=== PATIENT | male | born 1990 | race Caucasian/White ===

== ENCOUNTER 2016-06-16 21:39 | Emergency (ER) | payer OTHER ==
[~2016-06-16] VITALS: Ht 185.4 cm; Wt 86.2 kg
[~2016-06-16 21:39] MED LIST: AUGMENTIN 875 M1 TAB PO; AUGMENTIN 875-1 EACH PO; BACTRIM DS 8001 TAB PO; BLM PO; FLONASE ALLERG9.9 ML NAS; HYDROCODONE/ACE1 TA1 PO; IBUPROFEN800 M1 PO; LUVOX PO; MEDROL4 M2 PO; MOTRIN 400MG (400 MG PO; NORCO 325 MG-51 TAB PO; PERCOCET 325 MG1 TA2 PO; PERCOCET 5-3251 EACH PO; POLYTRIM O200 GTT/BO OPH; PREDNISOLO15 MG/5 M4 PO; PRILOSEC OTC20 M1 PO; VICODIN 300 MG-1 TAB PO
--- NOTE | 2016-06-16 22:19 | ED INFLUENZA/URI COMPLAINT ---
History of Present Illness General Chief Complaint: Upper Respiratory Sx/Fever Stated Complaint: URI SYMPTOMS Source: patient Exam Limitations: no limitations Vital Signs & Intake/Output Vital Signs & Intake/Output Vital Signs Date Time Temp Pulse Resp B/P Pulse O2 O2 Flow FiO2 Ox Delivery Rate 06/16 2245 99.6 90 18 136/80 97 Room Air Room Air 06/16 2148 99.7 115 20 155/81 96 Room Air ED Intake and Output 06/17 0000 06/16 1200 Intake Total Output Total Balance Patient 190 lb Weight Allergies Coded Allergies: NO KNOWN ALLERGIES (06/16/16) Reconcile Medications Azithromycin 250 MG TABLET 1 DP PO AD sinusitis 2 the first day followed by 1 for days 2-5 Triage Note: TRIAGE: PT TO ER C/C "EVERYONE IN MY HOUSE IS SICK. CONGESTION, DROWSINESS A LITTLE DIZZINESS. I THINK IT'S LIKE FLU OR COLD OR SOMETHING." PT AFEBRILE AT TRIAGE. Triage Nurses Notes Reviewed? yes HPI: This patient is a 26-year-old male who presented to the emergency department today for evaluation of upper respiratory tract symptoms. The patient reported that his symptoms began yesterday and consist of tactile fevers, nasal congestion, "and just like I could have a cold for something." The patient reported that, "everyone in my house is sick right now." He reported that his father has a cold and was put on a Z-Clay. The patient reported that it is difficult for him to sleep. He denied any ear pain, sore throat, chest pain, difficulty breathing, abdominal pain, nausea, cough, or vomiting. (MERCEDES HERNANDEZ PA-C) Past History Travel History Traveled to [place] past 21 day No Medical History Any Pertinent Medical History? 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 No (MERCEDES HERNANDEZ PA-C) Review of Systems Review of Systems Constitutional: Reports: see HPI. EENTM: Reports: see HPI. Respiratory: Reports: no symptoms. Cardiovascular: Reports: no symptoms. GI: Reports: no symptoms. Genitourinary: Reports: no symptoms. Musculoskeletal: Reports: no symptoms. Skin: Reports: no symptoms. Neurological/Psychological: Reports: no symptoms. All Other Systems: Reviewed and Negative (MERCEDES HERNANDEZ PA-C) Physical Exam Physical Exam Ears, Nose, Throat: moist mucous membrane, hearing grossly normal, POSITIVE NASAL CONGESTION. nO NASAL DRAINAGE.NO MUFFLED OR HOARSE VOICE Comments: Well-developed well-nourished person in no acute distress Neck: Supple, no lymphadenopathy. Nontender Back: Normal gait Cardiovascular: Regular rate and rhythm with no murmurs, rubs, or gallops Respiratory: No respiratory distress. Breath sounds clear to auscultation bilaterally with no wheezes, rales, or rhonchi Extremity: Normal and equal pulses Neuro: Alert oriented x3, cranial nerves II through XII grossly intact. Skin: No appreciable rash on exposed skin, skin is warm and dry. Psych: Mood and affect is normal Core Measures Severe Sepsis Present: No Septic Shock Present: No (MERCEDES HERNANDEZ PA-C) Progress Differential Diagnosis: influenza, meningitis, neutropenia, otitis, pneumonia, pharyngitis, sinusitis Plan of Care: Orders Procedure Date/time Status RAPID VIRAL INFLUENZA A 06/16 2206 Complete THROAT CULTURE W/QUICK STREP 06/16 2206 Active Initial ED EKG: none (MERCEDES HERNANDEZ PA-C) Departure Departure Disposition: HOME OR SELF CARE Condition: Stable Clinical Impression Primary Impression: Sinusitis Qualifiers: Sinusitis location: unspecified location Chronicity: unspecified Qualified Code: J32.9 - Chronic sinusitis, unspecified Referrals: GABRIEL PARIS MD (PCP/Family) Additional Instructions: Take antibiotic as directed. Be sure to stay hydrated and get rest. Follow-up with your primary care physician. Return for any worsening symptoms or concerns. Departure Forms: Customer Survey General Discharge Information Prescriptions: Current Visit Scripts Azithromycin 1 DP PO AD #6 TAB 2 the first day followed by 1 for days 2-5 (MERCEDES HERNANDEZ PA-C) PA/RATE CLERK Co-Sign Statement Statement: ED Attending supervision documentation- [] I saw and evaluated the patient. I have also reviewed all the pertinent lab results and diagnostic results. I agree with the findings and the plan of care as documented in the PA's/RATE CLERK's documentation. [x] I have reviewed the ED Record and agree with the PA's/RATE CLERK's documentation. [] Additions or exceptions (if any) to the PAs/RATE CLERK's note and plan are summarized below: [] (GUZMAN VILLANUEVA,SHANNAN Palmer)
[2016-06-16] MEDS ORDERED: AZITHROMYCIN250 M1 PO (22:32)
[2016-06-16 22:45] VITALS: BP 136/80
== END 2016-06-16 22:47 ==
LOC: ERH 21:39
DX: J32.9 Chronic sinusitis, unspecified (principal)
CPT/HCPCS: 87804; 87804-59

== ENCOUNTER 2016-06-23 15:32 | Emergency (ER) | payer OTHER ==
[~2016-06-23] VITALS: Ht 185.4 cm; Wt 86.2 kg
[~2016-06-23 15:32] MED LIST changes: +AZITHROMYCIN250 M1 PO
[2016-06-23 15:40] VITALS: BP 142/81
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
[2016-06-23] MEDS ORDERED: PERCOCET 5-3251 EACH PO (16:35)
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
== END 2016-06-23 17:44 ==
LOC: ERH 15:32
DX: S62.001A Unspecified fracture of navicular [scaphoid] bone of right wrist, initial encounter for closed fracture (principal); V89.2XXA Person injured in unspecified motor-vehicle accident, traffic, initial encounter
CPT/HCPCS: 73110-RT

== ENCOUNTER 2016-10-14 20:42 | Emergency (ER) | payer OTHER ==
[~2016-10-14] VITALS: Ht 185.4 cm; Wt 83.9 kg
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
[2016-10-14 22:14] LABS: ABSOLUTE BASOPHIL COUNT 0 /CUMM (0.0-0.2); ABSOLUTE EOSINOPHIL COUNT 0.1 /CUMM (0.0-0.7); ABSOLUTE GRANULOCYTE CT 3.5 /CUMM (1.4-6.5); ABSOLUTE LYMPH COUNT 2.8 /CUMM (1.2-3.4); ABSOLUTE MONOCYTE COUNT 0.5 /CUMM (0.10-0.60); BASOPHIL % 0.5 % (0.0-2.0); EOSINOPHIL % 2.1 % (0-5); GRANULOCYTE % 50.7 % (42.2-75.2); HEMATOCRIT 46.4 % (42-52); MEAN CORPUSCULAR HGB CONC 34.9 G/DL (33.0-37.0); MEAN CORPUSCULAR VOLUME 88.6 FL (80.0-94.0); MEAN PLATELET VOLUME 7.6 FL (7.4-10.4); PLATELET COUNT 262 /CUMM (130-400); RBC DISTRIBUTION WIDTH 11.9 % (11.5-14.5); RED BLOOD CELL CT 5.24 /CUMM (4.70-6.10); WHITE BLOOD CELL COUNT 6.9 /CUMM (4.8-10.8)
[2016-10-14] MEDS ORDERED: PERCOCET 5-3251 EACH PO ×2 (22:40→23:48)
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
--- NOTE | 2016-10-14 23:39 | ULTRASOUND REPORT ---
EXAMINATION: ULTRASOUND SCROTUM CLINICAL INFORMATION: Right-sided testicular pain. Intermittent for one week. Increasing pain today. COMPARISON: None. TECHNIQUE: Routine scrotal ultrasound with grayscale and spectral and color Doppler. FINDINGS: Testicle: There is homogeneous echotexture of the right and left testicle. No focal lesion. Doppler demonstrates arterial and venous vascular flow in both testicles. Right testicle: 4.5 x 2.2 x 3.1 cm. Volume 21.8 mL Left testicle: 4.2 x 2.5 x 2.7 cm. Volume 20.1 mL Epididymis: There is normal vascular flow with Doppler.. No abnormal mass. Small cysts in the head of the right epididymis measuring 4 mm. 2 mm cyst in the head of the left epididymis. Varices: There is no varices. Hydrocele: There is no hydrocele. Scrotal wall: Unremarkable. IMPRESSION: Normal ultrasound of the scrotum.
[2016-10-14] MEDS ORDERED: FLOMAX0.4 M1 PO (23:48)
[2016-10-15 00:01] VITALS: BP 122/74
== END 2016-10-15 00:02 ==
LOC: ERH 20:42
PROVIDERS: Physician Assistant
DX: R31.9 Hematuria, unspecified (principal); N50.811 Right testicular pain
CPT/HCPCS: 74176; 81001

== ENCOUNTER 2016-10-22 02:03 | Emergency (ER) | payer OTHER ==
[~2016-10-22] VITALS: Ht 185.4 cm; Wt 83.9 kg
[~2016-10-22 02:03] MED LIST changes: +FLOMAX0.4 M1 PO
[2016-10-22 02:19] VITALS: BP 144/81
--- NOTE | 2016-10-22 02:48 | ED GI/GU/ABDOMINAL COMPLAINT ---
History of Present Illness General Chief Complaint: General Adult Stated Complaint: " PER PT NEED PAIN MEDS FOR KIDNEY STONES" Source: patient, old records, friend Exam Limitations: no limitations Vital Signs & Intake/Output Vital Signs & Intake/Output Vital Signs Date Time Temp Pulse Resp B/P B/P Pulse O2 O2 Flow FiO2 Mean Ox Delivery Rate 10/22 0219 97.1 80 18 144/81 97 Room Air Allergies Coded Allergies: NO KNOWN ALLERGIES (06/16/16) Reconcile Medications Azithromycin 250 MG TABLET 1 DP PO AD sinusitis 2 the first day followed by 1 for days 2-5 Ibuprofen 800 MG TABLET 1 TAB PO Q6PRN PRN pain Oxycodone HCl/Acetaminophen (Percocet 5-325 MG Tablet) 5 MG-325 MG TABLET 1-2 TAB PO Q6P PRN PAIN Oxycodone HCl/Acetaminophen (Percocet 5-325 MG Tablet) 5 MG-325 MG TABLET 1-2 TAB PO Q6P PRN pain Oxycodone HCl/Acetaminophen (Percocet 5-325 MG Tablet) 5 MG-325 MG TABLET 1-2 TAB PO 4 TIMES/DAY PRN severe pain Oxycodone HCl/Acetaminophen (Percocet 5-325 MG Tablet) 5 MG-325 MG TABLET 1 TAB PO Q6HR PRN PAIN Tamsulosin HCl (Flomax) 0.4 MG CAP.ER.24H 1 CAP PO DAILY kidney stone Triage Note: TRIAGE: PATIENT TO ER FROM HOME REPORTING +KIDNEY STONES X 3 WEEKS, CT SCAN LAST TUESDAY. PATIENT SAW UROLOGIST ON TUESDAY THIS WEEK, WAS ASKED "IF GOING TO SURGERY TUESDAY OR WAIT 1 WEEK TO SEE IF IT PASSES." PATIENT REPORTS NOW OUT OF HIS PAIN MEDICATION. WAS TAKING PERCOCET 5-325 AND FLOMAX. ALSO TAKING TRAMADOL W/O RELIEF. Triage Nurses Notes Reviewed? yes Onset: 3 weeks Duration: week(s):, constant, continues in ED Timing: recent history Quality/Severity: aching, moderate, sharpness, severe Location: right flank Radiation: scrotal Activities at Onset: none Prior Abdominal Problems: similar symptoms Past Sexual History: Unobtainable at this time Modifying Factors: Improves With: other (pain medicine). Associated Symptoms: abdominal pain, nausea/vomiting HPI: 3 weeks prior to admission patient complains of intermittent right flank pain moderate to severe social with nausea waxing and waning radiating to his scrotum. 1 week prior to admission was diagnosed with right kidney stone epididymal cyst. He reports no allergies to laser the stone has not passed in 1 week. Denies fever chills nausea vomiting diarrhea vomiting diarrhea chest pain cough shortness breath headache dysuria rash bleeding. Past History Travel History Traveled to [place] past 21 day No Medical History Any Pertinent Medical History? 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 No Review of Systems Review of Systems Constitutional: Reports: no symptoms. EENTM: Reports: no symptoms. Respiratory: Reports: no symptoms. Cardiovascular: Reports: no symptoms. GI: Reports: no symptoms. Genitourinary: Reports: see HPI, pain. Musculoskeletal: Reports: no symptoms. Skin: Reports: no symptoms. Neurological/Psychological: Reports: no symptoms. Hematologic/Endocrine: Reports: no symptoms. Immunologic/Allergic: Reports: no symptoms. All Other Systems: Reviewed and Negative Physical Exam Physical Exam General Appearance: well developed/nourished, alert, awake, anxious, mild distress Head: atraumatic, normal appearance Eyes: Bilateral: normal appearance, PERRL, EOMI, normal inspection. Ears, Nose, Throat, Mouth: hearing grossly normal, moist mucous membrane Neck: normal inspection, supple, full range of motion, normal alignment Respiratory: normal breath sounds, chest non-tender, no respiratory distress, quiet respiration, lungs clear Cardiovascular: regular rate/rhythm, normal peripheral pulses, norml femoral pulses equa Peripheral Pulses: 4+ carotid (R), 4+ carotid (L) Gastrointestinal: normal bowel sounds, soft, non-tender, no organomegaly Male Genitals: normal genitalia Back: normal inspection, normal range of motion Extremities: normal range of motion, no ligament instability Neurologic/Psych: no motor/sensory deficits, awake, alert, oriented x 3, normal gait, normal mood/affect Skin: intact, normal color Core Measures ACS in differential dx? No Severe Sepsis Present: No Septic Shock Present: No Progress Differential Diagnosis: ureterolithiasis Plan of Care: Analgesia Initial ED EKG: none Departure Departure Time of Disposition: 248 Disposition: HOME OR SELF CARE Condition: Stable Clinical Impression Primary Impression: Renal colic on right side Referrals: HERON VILLANUEVA,GORGE PARIS MD,GABRIEL (PCP/Family) Departure Forms: Customer Survey General Discharge Information Prescriptions: Current Visit Scripts Oxycodone HCl/Acetaminophen (Percocet 5-325 MG Tablet) 1-2 TAB PO 4 TIMES/DAY PRN severe pain #20 TAB Ibuprofen 1 TAB PO Q6PRN PRN pain #50 TAB
[2016-10-22] MEDS ORDERED: IBUPROFEN800 M1 PO (02:51)
[2016-10-22] MEDS ORDERED: PERCOCET 5-3251 EACH PO (02:51)
== END 2016-10-22 03:01 ==
LOC: ERH 02:03
DX: N23 Unspecified renal colic (principal)

== ENCOUNTER 2016-10-29 03:28 | Observation (INO) | payer OTHER ==
[~2016-10-29] VITALS: Ht 185.4 cm; Wt 83.9 kg
--- NOTE | 2016-10-29 14:24 | Operative Report ---
Operative/Inv Procedure Report Surgery Date: 10/29/16 Name of Procedure: right ureteroscopy with laser lithotripsy and stone fragment removal; left ureteroscopy with retrograde pyelogram and stent placement Pre-Operative Diagnosis: right distal 3mm ureteral stone and left 3mm renal stone Post-Operative Diagnosis: same Estimated Blood Loss: scant Surgeon/Tube Worker: GORGE SHELBY MD Anesthesia: local monitored anesthesi Drains: 6x28cm stent in left ureter Specimens: stone fragments Complications: none; unable to get into left renal collecting system small extravasation in left renal system, UPJ area Condition: stable Operative Indication: right ureteral stone with renal colic Operative/Procedure Note Note: This an operative dictation on patient Kalen Seay. Patient was consented for right ureteroscopy with laser lithotripsy and stone removal with possible stent and left ureteroscopy with possible stone extraction and stent placement and retrograde pyelogram. He was given the risks benefits and alternatives of the surgery and he wished to proceed. All questions were answered. Patient was taken to the operating room placed on the operating table in the supine position. Once IV antibiotics were given and timeout was performed he was given LMA anesthesia. He was placed in the dorsolithotomy position and prepped and draped in the standard sterile fashion. A cystoscope was placed into the bladder and the bladder was globally inspected. There were no abnormalities and the ureteral orifices were in anatomic location. The right ureteral orifice was attempted to be cannulated with a solo guidewire but it was unable to be done. A semirigid ureteroscope was then placed up the ureter carefully and the stone was seen in the distal ureter. It was spiculated and yellow and black in color. This was lasered with a 200 laser fiber into smaller fragments. The 0 tip basket was then used to remove the fragments and passed off the field. The left ureter was then cannulated with a solo guidewire. The dual-lumen catheter was then used to attempt to place a second wire with a superstiff. However this was difficult to do as the dual-lumen catheter was not able to traverse the UO. However the superstiff was able to be passed up. The ureteral access sheath 45 cm was then used to gently dilate up the ureteral orifice. This was able to be done successfully with some care. Once the flexible digital ureteroscope was then placed up into the ureter through the ureteral access sheath at the point of the UPJ junction there was narrowing and the scope was not able to be passed. Given the small size of the stone and the patient's asymptomatic nature with that stone further dilation was not opted for with the balloon dilator. A retrograde pyelogram was performed and no obvious the stone defect was seen. There was a small extravasation at the UPJ junction. The ureteroscope with the ureteral access sheath was removed carefully under direct visualization. The remaining Solo wire was then used to place a 6 x 28 cm ureteral stent with the cystoscope. It was seen to be in good position and the wire was removed. Fluoroscopically and cystoscopically the stent was in good position. The patient tolerated the procedure well. Findings: right distal ureteral stone. Left narrowed ureteral orifice and tight UPJ area. Unable to enter the renal pelvis with the ureteroscope on the left side so this was aborted. Discharge Disposition: PACU
[2016-10-29 20:03] VITALS: BP 140/74
--- NOTE | 2016-10-29 21:59 | RADIOLOGY REPORT ---
EXAMINATION: ABDOMEN 1 VIEW CLINICAL INFORMATION: Pain. Stent placement. COMPARISON: 10/14/2016. TECHNIQUE: A supine view of the abdomen is provided. FINDINGS: There are no dilated loops of small bowel. There are no air-fluid levels. A left double-J ureteral stent is in place. The proximal aspect overlies the renal pelvis. The distal aspect terminates within the urinary bladder. The visualized lung bases are clear. The osseous structures are unremarkable. IMPRESSION: Left double-J ureteral stent in place. Unremarkable bowel gas pattern.
--- NOTE | 2016-10-29 23:41 | RADIOLOGY REPORT ---
EXAMINATION: INTRAOPERATIVE FLUOROSCOPIC GUIDANCE AND ABDOMEN CLINICAL INFORMATION: Bilateral ureteroscopy. Right lithotripsy. Left stent placement. COMPARISON: Abdominal and pelvic CT from 10/14/2016. TECHNIQUE: Fluoroscopic time was utilized in the OR for Dr. Maharaj. Fluoroscopic images were obtained in the AP projection. FINDINGS: Fluoroscopic guidance was provided during left ureteroscopy. Contrast fills the left collecting system and proximal left ureter. There is mild dilation to the proximal left ureter. The calyces are not dilated. FLUOROSCOPY TIME: 25 seconds of fluoroscopic time was utilized for the entirety of this examination. IMPRESSION: Fluoroscopic guidance was provided during left ureteroscopy. Contrast fills the left collecting system and proximal left ureter. There is mild dilation to the proximal left ureter. The calyces are not dilated.
[2016-10-30 06:28] VITALS: BP 134/76
[2016-10-30 08:20] LABS: ABSOLUTE BASOPHIL COUNT 0 /CUMM (0.0-0.2); ABSOLUTE EOSINOPHIL COUNT 0 /CUMM (0.0-0.7); ABSOLUTE GRANULOCYTE CT 7.3 /CUMM (1.4-6.5); ABSOLUTE LYMPH COUNT 2.2 /CUMM (1.2-3.4); ABSOLUTE MONOCYTE COUNT 0.7 /CUMM (0.10-0.60); BASOPHIL % 0.3 % (0.0-2.0); EOSINOPHIL % 0.1 % (0-5); GRANULOCYTE % 71.3 % (42.2-75.2); HEMATOCRIT 44.5 % (42-52); MEAN CORPUSCULAR HGB 30.2 PG (27.0-31.0); MEAN CORPUSCULAR HGB CONC 33.9 G/DL (33.0-37.0); MEAN CORPUSCULAR VOLUME 89.1 FL (80.0-94.0); MEAN PLATELET VOLUME 8.6 FL (7.4-10.4); PLATELET COUNT 247 /CUMM (130-400); RBC DISTRIBUTION WIDTH 11.6 % (11.5-14.5); WHITE BLOOD CELL COUNT 10.3 /CUMM (4.8-10.8)
--- NOTE | 2016-10-30 10:59 | Cons- Urology ---
General Information and HPI Consulting Request Date of Consult: 10/15/16 Requested By: MD MARIA EUGENIA ANESTHESIA Reason for Consult: SEVERE LEFT COLIC INTOLERANCE TO STENT Source of Information: patient Exam Limitations: no limitations History of Present Illness: 26 YEAR OLD POST BILAT URETEROSCOPY FOR STONES WITH LEFT STENT PLACED. PT WITH N/V AND UNABLE TO CONTROL SEVERE 10/10 PAIN FROM LEFT STENT WITH PO PERCOCET AND IV DILAUDID. THE PT WAS SENT BACK TO PER ANESTHESIA PROTOCOL FOR EVALUATION. ATTEMPTS TO CONTACT DR. SHELBY REPORTEDLY UNSUCCESSFUL AND CONTACTED ME ON URGENT REQUEST. The pt WAS IN EXCRUTIATING PAIN FOR 10-15MIN POST VOID REQUIRING IV DILAUDID. HE WILL BE ADMITTED FOR PAIN MANAGEMENT, POSSIBLE STENT REMOVAL IN AM. Allergies/Medications Allergies: Coded Allergies: NO KNOWN ALLERGIES (06/16/16) Home Med List: Ciprofloxacin HCl (Cipro) 500 MG TABLET 1 TAB PO BID INFECTION Oxycodone HCl/Acetaminophen (Percocet 5-325 MG Tablet) 5 MG-325 MG TABLET 1-2 TAB PO Q6P PRN PAIN Phenazopyridine HCl 100 MG TABLET 100 MG PO PC PRN ABDOMINAL PAIN FOR DYSURIA TID PRN Tamsulosin HCl (Flomax) 0.4 MG CAP.ER.24H 1 CAP PO DAILY kidney stone Current Medications: Current Medications Sig/Jen Start time Last Medication Dose Route Stop Time Status Admin Cefazolin Sodium 2,000 MG ONCE 10/29 0000 DC IV 10/29 2359 Dextrose/Water 1,000 ML .Q20H 10/29 1900 AC 10/29 IV 2002 Docusate Sodium 100 MG BID 10/29 2200 AC 10/30 PO 1031 Fentanyl Citrate 200 MCG .STK-MED ONE 10/29 1255 DC IM 10/29 1256 Hydromorphone HCl 2 MG .STK-MED ONE 10/29 1823 DC IM 10/29 1824 Hydromorphone HCl 2 MG .STK-MED ONE 10/29 1451 DC IM 10/29 1452 Midazolam HCl 4 MG .STK-MED ONE 10/29 1255 DC IM 10/29 1256 Oxycodone/ 2 TAB Q4P PRN 10/29 1900 AC 10/30 Acetaminophen PO 0724 Oxycodone/ 0 .STK-MED ONE 10/29 1630 DC Acetaminophen PO Phenazopyridine HCl 100 MG PC 10/30 0900 AC 10/30 PO 1030 Tamsulosin HCl 0.4 MG BID 10/29 220 AC 10/29 PO 2219 Past History Medical History Neurological: NONE EENT: otitis media, sinusitis Cardiovascular: NONE Respiratory: NONE Gastrointestinal: NONE Hepatic: NONE Renal: nephrolithiasis Musculoskeletal: PINKY FINGER FX Psychiatric: NONE Endocrine: NONE Blood Disorders: NONE Cancer(s): 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 Home Who Do You Live With? parent Services at Home: None Primary Language: Beninese Smoking Status: Current Everyday Smoker ETOH Use: occasional use Illicit Drug Use: denies illicit drug use Living Will? no Functional Ability ADLs Independent: dressing, eating, toileting, bathing. Ambulation: independent IADLs Independent: shopping, housework, finances, food prep, telephone, transportation , medication admin. Employment History Employment: Employed ([employer]) Retired? no Review of Systems Review of Systems Constitutional: Denies: no symptoms. EENTM: Denies: no symptoms. Cardiovascular: Denies: no symptoms. Respiratory: Denies: no symptoms. Genitourinary: Reports: dysuria, frequency, hematuria. Musculoskeletal: Denies: no symptoms. Skin: Denies: no symptoms. Exam & Diagnostic Data Vital Signs and I&O Vital Signs Date Time Temp Pulse Resp B/P B/P Pulse O2 O2 Flow FiO2 Mean Ox Delivery Rate 10/31 627 97.5 63 20 134/76 98 10/299 61 140/74 10/29 2002 98.1 61 18 140/74 97 Room Air Intake & Output 10/30 1600 10/30 0800 10/30 0000 10/29 1600 10/29 0800 10/29 0000 Intake Total 400 440 Output Total 275 Balance 400 165 Intake, IV 400 200 Intake, Oral 240 Output, Urine 275 Patient 185 lb Weight Physical Exam General Appearance: well developed/nourished, severe distress Head: atraumatic Eyes: Bilateral: normal appearance. Respiratory: normal breath sounds Cardiovascular: regular rate/rhythm Gastrointestinal: distention Back: CVA tenderness (L) Extremities: normal inspection Skin: intact Reproductive: Normal male genitalia Last 24 Hours of Labs: Laboratory Tests 10/30 0600 Chemistry Sodium (137 - 145 mmol/L) 136 L Potassium (3.5 - 5.1 mmol/L) 4.3 Chloride (98 - 107 mmol/L) 101 Carbon Dioxide (22 - 30 mmol/L) 26 Anion Gap (5 - 16) 10 BUN (9 - 20 mg/dL) 14 Creatinine (0.7 - 1.2 mg/dL) 1.0 Estimated GFR (>60 ml/min) > 60 BUN/Creatinine Ratio (7 - 25 %) 14.0 Hematology CBC w Diff NO MAN DIFF REQ WBC (4.8 - 10.8 /CUMM) 10.3 RBC (4.70 - 6.10 /CUMM) 5.00 Hgb (14.0 - 18.0 G/DL) 15.1 Hct (42 - 52 %) 44.5 MCV (80.0 - 94.0 FL) 89.1 MCH (27.0 - 31.0 PG) 30.2 RDW (11.5 - 14.5 %) 11.6 Plt Count (130 - 400 /CUMM) 247 MPV (7.4 - 10.4 FL) 8.6 Gran % (42.2 - 75.2 %) 71.3 Lymphocytes % (20.5 - 51.1 %) 21.6 Monocytes % (1.7 - 9.3 %) 6.7 Eosinophils % (0 - 5 %) 0.1 Basophils % (0.0 - 2.0 %) 0.3 Absolute Granulocytes (1.4 - 6.5 /CUMM) 7.3 H Absolute Lymphocytes (1.2 - 3.4 /CUMM) 2.2 Absolute Monocytes (0.10 - 0.60 /CUMM) 0.7 H Absolute Eosinophils (0.0 - 0.7 /CUMM) 0 Absolute Basophils (0.0 - 0.2 /CUMM) 0 PUBS MCHC (33.0 - 37.0 G/DL) 33.9 Imaging Results: PATIENT: KASSANDRA FLEMING PRESENT AGE: 26 PATIENT ACCOUNT NO: [id number] : 89 LOCATION: [facility] ORDERING PHYSICIAN: ANTON COFFMAN SERVICE DATE: 10/14/16 EXAM TYPE: CAT - CT ABD & PELVIS W/O IV CONTRAS EXAMINATION: CT ABDOMEN AND PELVIS WITHOUT CONTRAST CLINICAL INFORMATION: Flank pain and hematuria. Scrotal pain. COMPARISON: None. TECHNIQUE: Multidetector volumetric imaging was performed from the superior aspect of the liver through the pubic symphysis. Sagittal and coronal reformatted images were obtained on the technologist's workstation. DLP: 306 mGy-cm FINDINGS: Limited evaluation of the solid abdominal viscera in the absence of intravenous contrast. LUNG BASES: The visualized lung bases are unremarkable. LIVER, GALLBLADDER, AND BILIARY TREE: The liver is normal in size, shape, and attenuation. No contour deforming hepatic lesion or biliary ductal dilatation is present. The gallbladder is unremarkable with no evidence of radiopaque gallstones, gallbladder wall thickening, or obvious pericholecystic inflammatory changes. PANCREAS: Unremarkable. SPLEEN: Unremarkable. ADRENAL GLANDS: Unremarkable. KIDNEYS AND URETERS: Nephrolithiasis of the left kidney, with a 3 mm nonobstructing stone identified within the midpole of the left kidney. No appreciable nephrolithiasis of the right kidney. Of note, there is a 3 mm stone within the distal right ureter, adjacent to the S1 vertebral body. There is no upstream obstruction of the right kidney. No left-sided ureteral stones are identified and there is no hydronephrosis of either kidney. BLADDER: Decompressed but otherwise unremarkable. GASTROINTESTINAL TRACT: Normal anatomic orientation of the stomach relative to the duodenum. Normal caliber of abdominal and pelvic bowel loops, without evidence of obstruction or ileus. No circumferential bowel wall thickening with surrounding inflammatory changes to suggest an underlying infectious or inflammatory enterocolitis. Nonvisualization of the appendix. No acute inflammatory changes within the right lower quadrant of the abdomen. No organizing intra-abdominal fluid collections or free intraperitoneal air. ABDOMINAL WALL: No significant hernia is appreciated. LYMPH NODES: No significant abdominal or pelvic adenopathy. VASCULAR: Normal course and caliber of the abdominal aorta and its branching vessels, without aneurysmal dilatation. Limited evaluation for vascular patency in the absence of intravenous contrast. PELVIC VISCERA: Unremarkable. OSSEOUS STRUCTURES: No acute osseous abnormality. Normal alignment of the thoracolumbar spine. IMPRESSION: A 3 mm stone within the distal right ureter without associated upstream hydroureteronephrosis of the right kidney or right renal collecting system. Nephrolithiasis of the left kidney with a 3 mm nonobstructing stone identified within the midpole of the left kidney. Assessment/Plan Assessment/Plan LEFT STENT INTOLERANCE: ATE SOLID FOOD IN SDS-WILL NEED OVERNIGHT NPO WITH IV NARC FOR PAIN CONTROL-LIKELY STENT DC IN AM Copies To: AVRIL VELAZCO MD Consult Acknowledgment - Thank you for your consult request. Attending MD Review Statement Attending Statement Attending MD Statement: examined this patient, discussed with family, discussed w/nursing Attending Assessment/Plan: LEFT STENT INTOLERANCE: 23 HR HOLD FOR STENT DC IN AM.
[2016-10-30 11:13] VITALS: BP 132/68
--- NOTE | 2016-10-30 11:20 | NUR ---
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 TICLET TO RIDE COMPLETE, CHART/OR CHECKLIST AND STAMPER SENT WITH PT. AWAIT RETURN TO FLOOR.
[2016-10-30] MEDS ORDERED: PHENAZOPYRIDIN100 M3 PO (12:03)
[2016-10-30] MEDS ORDERED: CIPRO500 M1 PO (12:03)
--- NOTE | 2016-10-30 12:31 | Operative Report ---
Operative/Inv Procedure Report Surgery Date: 10/30/16 Name of Procedure: cystoscopy: left stent removal Pre-Operative Diagnosis: stent intolerance Post-Operative Diagnosis: same Estimated Blood Loss: scant Surgeon/Psychologist: AVRIL VELAZCO MD Anesthesia: moderate sedation Drains: none Specimens: left stent-intact Complications: none Condition: pain free in RR Operative/Procedure Note Note: The patient was taken to the operating room placed OR table in supine position. Timeout was performed, with the patient awake, in order to confirm anesthesia, and other pertinent perioperative information. After adequate anesthesia, the patient was then placed lithotomy stirrups, draped and prepped in the usual surgical fashion. A 22 Somali cystoscope sheath with 30 angle lens was inserted into the urethra, subsequently into the bladder without difficulty. Upon thorough and systematic surveillance, the bladder was noted to be free of tumor free of stone. Both ureteral orifices were in their orthotopic position with clear eflux from the right, and a stent protruding from the left. The left stent was grasped with an alligator forcep, and the cystoscope along with entire stent was removed without difficulty. 2% Urojet was instilled into urethra and clamped for 5 minutes. The patient tolerated the procedure well was then taken to the recovery room in satisfactory condition. He is to be discharged home with antibiotics pain medications and the follow-up appointment with Dr. Maharaj in the outpatient setting. Discharge Disposition: PACU CC: AVRIL VELAZCO MD
[2016-10-30 13:30] VITALS: BP 126/78
--- NOTE | 2016-10-30 13:38 | NUR ---
NURSING NOTE: PT BACK TO FLOOR VIA STRETCHER FROM OR, AMBULATED TO BATHROOM, VOIDED ORANGE COLORED URINE, DENIES COMPLAINTS, REG DIET ORDER, VITALS OBAINED, PT TO BE DCD WHEN TOLERATES PO. CONT TO MONITOR.
[2016-10-30] MEDS ORDERED: TAMSULOSIN HCL0.4 M1 PO (16:27)
[2016-10-30] MEDS ORDERED: OXYCODONE-ACET1 EACH PO (16:35)
[2016-10-30] MEDS ORDERED: VALIUM5 M2 PO (18:29)
== END 2016-10-30 15:24 ==
LOC: STS 03:28 → PACUH 18:33 → 2NB 18:33 → ENRESERV 19:07 → 2NB 19:53 → ENPENDDIS 10-30 12:38 → 2NB 10-30 15:24
PROVIDERS: ADMIT Urology
DX: N20.2 Calculus of kidney with calculus of ureter (principal); F17.200 Nicotine dependence, unspecified, uncomplicated; T83.84XA Pain due to genitourinary prosthetic devices, implants and grafts, initial encounter; Y73.3 Surgical instruments, materials and gastroenterology and urology devices (including sutures) associated with adverse incidents
CPT/HCPCS: 36415; 74000; 82355; 82436; C2617; J0131; J0690; J7060

== ENCOUNTER 2016-10-30 16:07 | Emergency (ER) | payer OTHER ==
[~2016-10-30] VITALS: Ht 185.4 cm; Wt 83.9 kg
[~2016-10-30 16:07] MED LIST changes: +CIPRO500 M1 PO; +PHENAZOPYRIDIN100 M3 PO
--- NOTE | 2016-10-30 16:20 | ED GI/GU/ABDOMINAL COMPLAINT ---
History of Present Illness General Chief Complaint: Abdominal Pain/Flank Pain Stated Complaint: L KIDNEY PAIN, STENT REMOVAL TODAY Source: patient, family Exam Limitations: no limitations Vital Signs & Intake/Output Vital Signs & Intake/Output Vital Signs Date Time Temp Pulse Resp B/P B/P Pulse O2 O2 Flow FiO2 Mean Ox Delivery Rate 10/30 1830 96.8 62 17 135/89 98 Room Air 10/30 1626 98.2 75 16 146/76 99 Room Air Allergies Coded Allergies: NO KNOWN ALLERGIES (06/16/16) Reconcile Medications Ciprofloxacin HCl (Cipro) 500 MG TABLET 1 TAB PO BID INFECTION Diazepam (Valium) 5 MG TABLET 1 TAB PO TID BACK PAIN Oxycodone HCl/Acetaminophen (Oxycodone-Acetaminophen 5-325) 5 MG-325 MG TABLET 1 TAB PO AD PAIN (Reported) Phenazopyridine HCl 100 MG TABLET 100 MG PO PC PRN ABDOMINAL PAIN FOR DYSURIA TID PRN Tamsulosin HCl 0.4 MG CAP.ER.24H 1 CAP PO DAILY (Reported) Triage Nurses Notes Reviewed? yes HPI: 26-year-old male arrived to triage to [facility] complaining of severe left and right flank pain, left more than right starting 45 minutes ago. He was just discharged from this hospital 45 minutes ago after having a urethral stent removed left kidney. He had a bilateral ureteral scoping for stones with left stent placed October 29. He was having nausea and vomiting and unable to control pain with Percocet and IV Dilaudid. He went for stent removal this morning because it was felt he could not tolerate it due to the excruciating pain he was having. He was discharged home with antibiotics and Percocet for pain. He is returned because the pain returned 1010 achy cramping which is causing him to feel slight nausea and diaphoresis. I spoke to Dr. Little and we will administer IV morphine for pain control but no further imaging is needed. (MARY GARCIA APRN) Past History Travel History Traveled to [place] past 21 day No Medical History Any Pertinent Medical History? see below for history Neurological: NONE EENT: otitis media, sinusitis Cardiovascular: NONE Respiratory: NONE Gastrointestinal: NONE Hepatic: NONE Renal: nephrolithiasis Musculoskeletal: PINKY FINGER FX Psychiatric: NONE Endocrine: NONE Blood Disorders: NONE Cancer(s): NONE ATHLETIC SCOUT/Reproductive: NONE History of MRSA: No History of VRE: No History of CDIFF: No Surgical History Surgical History: appendectomy, LITHOTRIPSY WITH STENT REMOVAL Psychosocial History Services at Home None What is your primary language Swiss Family History Hx Contributory? No (MARY GARCIA APRN) Review of Systems Review of Systems Constitutional: Reports: diaphoresis. EENTM: Reports: no symptoms. Respiratory: Reports: no symptoms. Cardiovascular: Reports: no symptoms. GI: Reports: no symptoms. Genitourinary: Reports: no symptoms. Musculoskeletal: Reports: see HPI, back pain. Skin: Reports: no symptoms. Neurological/Psychological: Reports: no symptoms. Hematologic/Endocrine: Reports: no symptoms. Immunologic/Allergic: Reports: no symptoms. All Other Systems: Reviewed and Negative (MARY GARCIA APRN) Physical Exam Physical Exam General Appearance: alert, awake, severe distress Head: atraumatic, normal appearance Eyes: Bilateral: normal appearance, PERRL, EOMI. Ears, Nose, Throat, Mouth: hearing grossly normal Neck: normal inspection Respiratory: normal breath sounds, chest non-tender, no respiratory distress Cardiovascular: regular rate/rhythm Gastrointestinal: normal bowel sounds, soft, non-tender Back: CVA tenderness (R), CVA tenderness (L) Extremities: normal range of motion, evidence of injury Neurologic/Psych: no motor/sensory deficits, awake, alert, oriented x 3, normal gait, normal mood/affect Skin: intact, diaphoresis, pallor Core Measures ACS in differential dx? No Severe Sepsis Present: No Septic Shock Present: No (MARY GARCIA APRN) Progress Differential Diagnosis: ureterolithiasis, urinary retention, UTI/pyelo Plan of Care: Orders Procedure Date/time Status URINALYSIS 10/30 161 Active COMPREHENSIVE METABOLIC PANEL 10/30 1617 Complete CBC WITHOUT DIFFERENTIAL 10/30 1617 Complete Laboratory Tests 10/30/16 1820: Urine Color Pending, Urine Clarity Pending, Urine pH Pending, Ur Specific [place] Pending, Urine Protein Pending, Urine Ketones Pending, Urine Nitrite Pending, Urine Bilirubin Pending, Urine Urobilinogen Pending, Ur Leukocyte Esterase Pending, Ur Microscopic SEDIMENT EXAMINED, Urine RBC Pending, Urine Hemoglobin Pending, Urine Glucose Pending 10/30/16 1626: Anion Gap 12, Estimated GFR > 60, BUN/Creatinine Ratio 11.8, Glucose 92, Calcium 9.0, Total Bilirubin 1.7 H, AST 19, ALT 47, Alkaline Phosphatase 54, Total Protein 7.1, Albumin 4.4, Globulin 2.7, Albumin/Globulin Ratio 1.6, CBC w Diff NO MAN DIFF REQ, RBC 5.26, MCV 88.1, MCH 29.8, RDW 11.9, MPV 7.7, Gran % 58.7, Lymphocytes % 31.0, Monocytes % 8.8, Eosinophils % 0.7, Basophils % 0.8, Absolute Granulocytes 7.3 H, Absolute Lymphocytes 3.9 H, Absolute Monocytes 1.1 H, Absolute Eosinophils 0.1, Absolute Basophils 0.1, PUBS MCHC 33.9 Initial ED EKG: none Comments: 6:09 PM patient has complete relief with 4 of morphine, Valium and Toradol. 6:32 PM patient is going to be discharged home with his girlfriend. He feels 100% better and is ready to go home. Blood work is still pending along with UA but he will follow up with Dr. Maharaj or [place] on Tuesday. (MARY GARCIA APRN) Departure Departure Time of Disposition: 1823 Disposition: HOME OR SELF CARE Condition: Stable Clinical Impression Primary Impression: Nephrolithiasis Referrals: WELLINGTON VILLANUEVA,GABRIEL (PCP/Family) Additional Instructions: Please follow up with Dr. Maharaj on Tuesday. Please take antibiotics and Percocet has directed. We will add ibuprofen 800 mg 3 times a day and Valium 5 mg 3 times a day as needed for pain and muscles spasms. Departure Forms: Customer Survey General Discharge Information Prescriptions: Current Visit Scripts Diazepam (Valium) 1 TAB PO TID #15 TAB (MARY GARCIA APRN) PA/RESPIRATORY THERAPY AIDE Co-Sign Statement Statement: ED Attending supervision documentation- [] I saw and evaluated the patient. I have also reviewed all the pertinent lab results and diagnostic results. I agree with the findings and the plan of care as documented in the PA's/RESPIRATORY THERAPY AIDE's documentation. [X] I have reviewed the ED Record and agree with the PA's/RESPIRATORY THERAPY AIDE's documentation. [] Additions or exceptions (if any) to the PAs/RESPIRATORY THERAPY AIDE's note and plan are summarized below: [] (ILA VILLANUEVA,DAWSON Saxena)
[2016-10-30] MEDS ORDERED: TAMSULOSIN HCL0.4 M1 PO (16:27)
[2016-10-30 16:35] LABS: ABSOLUTE BASOPHIL COUNT 0.1 /CUMM (0.0-0.2); ABSOLUTE EOSINOPHIL COUNT 0.1 /CUMM (0.0-0.7); ABSOLUTE GRANULOCYTE CT 7.3 /CUMM (1.4-6.5); ABSOLUTE LYMPH COUNT 3.9 /CUMM (1.2-3.4); ABSOLUTE MONOCYTE COUNT 1.1 /CUMM (0.10-0.60); BASOPHIL % 0.8 % (0.0-2.0); EOSINOPHIL % 0.7 % (0-5); GRANULOCYTE % 58.7 % (42.2-75.2); HEMATOCRIT 46.3 % (42-52); MEAN CORPUSCULAR HGB 29.8 PG (27.0-31.0); MEAN CORPUSCULAR HGB CONC 33.9 G/DL (33.0-37.0); MEAN CORPUSCULAR VOLUME 88.1 FL (80.0-94.0); MEAN PLATELET VOLUME 7.7 FL (7.4-10.4); PLATELET COUNT 252 /CUMM (130-400); RBC DISTRIBUTION WIDTH 11.9 % (11.5-14.5); RED BLOOD CELL CT 5.26 /CUMM (4.70-6.10); WHITE BLOOD CELL COUNT 12.5 /CUMM (4.8-10.8)
[2016-10-30] MEDS ORDERED: OXYCODONE-ACET1 EACH PO (16:35)
[2016-10-30] MEDS ORDERED: VALIUM5 M2 PO (18:29)
[2016-10-30 18:30] VITALS: BP 135/89
== END 2016-10-30 18:36 ==
LOC: ERH 16:07
PROVIDERS: Nurse Practitioner Family
DX: N20.0 Calculus of kidney (principal)
CPT/HCPCS: 81001; 96360; 96361; 96374; 96375; J1885; J3360

== ENCOUNTER 2016-10-31 04:08 | Emergency (ER) | payer OTHER ==
[~2016-10-31 04:08] MED LIST changes: +OXYCODONE-ACET1 EACH PO; +TAMSULOSIN HCL0.4 M1 PO; +VALIUM5 M2 PO
--- NOTE | 2016-10-31 04:54 | ED GI/GU/ABDOMINAL COMPLAINT ---
History of Present Illness General Chief Complaint: Abdominal Pain/Flank Pain Stated Complaint: BIBA ABD PAIN Source: patient Exam Limitations: no limitations Vital Signs & Intake/Output Vital Signs & Intake/Output Vital Signs Date Time Temp Pulse Resp B/P B/P Pulse O2 O2 Flow FiO2 Mean Ox Delivery Rate 10/31 0921 97.2 68 17 130/68 97 Room Air 10/31 0654 97.8 61 16 141/66 97 Room Air 10/31 0503 Room Air Room Air 10/31 0427 99.1 60 22 143/78 Allergies Coded Allergies: NO KNOWN ALLERGIES (06/16/16) Reconcile Medications Ciprofloxacin HCl (Cipro) 500 MG TABLET 1 TAB PO BID INFECTION Diazepam (Valium) 5 MG TABLET 1 TAB PO TID BACK PAIN Oxycodone HCl/Acetaminophen (Oxycodone-Acetaminophen 5-325) 5 MG-325 MG TABLET 1 TAB PO AD PAIN (Reported) Phenazopyridine HCl 100 MG TABLET 100 MG PO PC PRN ABDOMINAL PAIN FOR DYSURIA TID PRN Tamsulosin HCl 0.4 MG CAP.ER.24H 1 CAP PO DAILY (Reported) Triage Note: C/O LT FLANK PAIN,SEEN HERE EARLIER TODAY FOR SAME MEDS NO HELPING, HAD STENT REMOVED TUESDAY Triage Nurses Notes Reviewed? yes HPI: Patient presents for evaluation of severe constant sharp left sided abdominal pain after left ureteral stent removal Tuesday morning. Patient was evaluated in the emergency department later that morning and was given morphine with improvement. He now presents because he is having severe pain yet again. His last urine output was about 1:00 this morning. (LORENZA VILLANUEVA,CHELLY Briseno) Past History Travel History Traveled to [place] past 21 day No Medical History Any Pertinent Medical History? see below for history Neurological: NONE EENT: otitis media, sinusitis Cardiovascular: NONE Respiratory: NONE Gastrointestinal: NONE Hepatic: NONE Renal: nephrolithiasis Musculoskeletal: PINKY FINGER FX Psychiatric: NONE Endocrine: NONE Blood Disorders: NONE Cancer(s): NONE PHYSICAL THERAPY AIDE/Reproductive: NONE History of MRSA: No History of VRE: No History of CDIFF: No Surgical History Surgical History: appendectomy, LITHOTRIPSY WITH STENT REMOVAL Psychosocial History Services at Home None What is your primary language Slovenian Tobacco Use: Refused to answer Family History Hx Contributory? No (CHELLY BRITT MD) Review of Systems Review of Systems Constitutional: Reports: no symptoms. EENTM: Reports: no symptoms. Respiratory: Reports: no symptoms. Cardiovascular: Reports: no symptoms. GI: Reports: no symptoms. Genitourinary: Reports: see HPI. Musculoskeletal: Reports: no symptoms. Skin: Reports: no symptoms. Neurological/Psychological: Reports: no symptoms. Hematologic/Endocrine: Reports: no symptoms. Immunologic/Allergic: Reports: no symptoms. All Other Systems: Reviewed and Negative (LORENZA VILLANUEVA,CHELLY Briseno) Physical Exam Physical Exam Gastrointestinal: see below Comments: Gen.: Well-nourished, well-developed, no acute respiratory distress. Acutely distressed and anxious secondary to abdominal pain. Head: Normocephalic, atraumatic. Eyes: Normal inspection bilaterally Ears: Normal inspection bilaterally Nose: Normal inspection Throat/mouth : Moist mucosa Neck: Supple, full range of motion, no goiter Heart: Regular rate and rhythm, no murmurs rubs or gallops Lungs: Clear to auscultation bilaterally with normal air entry Chest: Nontender Back: Normal range of motion Abdomen: Tense with left lower quadrant abdominal tenderness, normal bowel sounds, no ecchymoses or erythema. Extremities: Normal range of motion grossly, equal radial pulses, no cyanosis clubbing or edema Neurologic: Cranial nerves grossly intact, speech is clear Skin: warm and dry Psychiatric: Calm, cooperative, no apparent delusions or hallucinations Core Measures ACS in differential dx? No Severe Sepsis Present: No Septic Shock Present: No (LORENZA VILLANUEVA,CHELLY Briseno) Progress Differential Diagnosis: HYDRONEPHROSIS, HYDROURETER, RENAL COLIC Plan of Care: Orders Procedure Date/time Status CBC WITHOUT DIFFERENTIAL 10/31 453 Complete BASIC METABOLIC PANEL 10/31 453 Complete Current Medications Sig/Jen Start time Last Medication Dose Stop Time Status Admin Sodium Chloride 1,000 ML Q13H 10/31 0815 AC (Normal Saline 0.9%) Laboratory Tests 10/31/16 0455: Anion Gap 10, Estimated GFR > 60, BUN/Creatinine Ratio 12.5, Glucose 120 H, Calcium 8.8, CBC w Diff NO MAN DIFF REQ, RBC 4.84, MCV 88.6, MCH 30.1, RDW 12.0, MPV 7.9, Gran % 69.1, Lymphocytes % 22.4, Monocytes % 7.2, Eosinophils % 0.9, Basophils % 0.4, Absolute Granulocytes 8.6 H, Absolute Lymphocytes 2.8, Absolute Monocytes 0.9 H, Absolute Eosinophils 0.1, Absolute Basophils 0.1, PUBS MCHC 34.0 Initial ED EKG: none Comments: 10/31/2016 6:55:54 AM patient signed out to Dr. 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 (LORENZA VILLANUEVA,CHELLY Briseno) Comments: Discussed with Dr. Little. He will take him back to the OR to the pediatric stent in hopes that the patient will tolerate that stent better. Patient has been advised. Worsens been answered. (ILA VILLANUEVA,DAWSON Saxena) Departure Departure Condition: Stable Clinical Impression Primary Impression: Hydronephrosis, left Departure Forms: Customer Survey General Discharge Information (LORENZA VILLANUEVA,CHELLY Briseno) Departure Disposition: HOME OR SELF CARE Referrals: WELLINGTON VILLANUEVA,GABRIEL (PCP/Family) AVRIL LITTLE MD Additional Instructions: Follow-up as per recommendations of Dr. Little (ILA VILLANUEVA,DAWSON Saxena)
[2016-10-31 05:17] LABS: ABSOLUTE BASOPHIL COUNT 0.1 /CUMM (0.0-0.2); ABSOLUTE EOSINOPHIL COUNT 0.1 /CUMM (0.0-0.7); ABSOLUTE GRANULOCYTE CT 8.6 /CUMM (1.4-6.5); ABSOLUTE LYMPH COUNT 2.8 /CUMM (1.2-3.4); ABSOLUTE MONOCYTE COUNT 0.9 /CUMM (0.10-0.60); BASOPHIL % 0.4 % (0.0-2.0); EOSINOPHIL % 0.9 % (0-5); GRANULOCYTE % 69.1 % (42.2-75.2); HEMATOCRIT 42.8 % (42-52); MEAN CORPUSCULAR HGB 30.1 PG (27.0-31.0); MEAN CORPUSCULAR VOLUME 88.6 FL (80.0-94.0); MEAN PLATELET VOLUME 7.9 FL (7.4-10.4); PLATELET COUNT 223 /CUMM (130-400); RED BLOOD CELL CT 4.84 /CUMM (4.70-6.10); WHITE BLOOD CELL COUNT 12.4 /CUMM (4.8-10.8)
--- NOTE | 2016-10-31 05:38 | CT SCAN REPORT ---
EXAMINATION: CT ABDOMEN AND PELVIS WITH CONTRAST CLINICAL INFORMATION: Left lower quadrant abdominal pain COMPARISON: Abdominal radiographs October 29, [address] October 14, 2016. TECHNIQUE: Multidetector volumetric imaging was performed of the abdomen and pelvis before and after the IV administration of 95 mL of Omnipaque 300 intravenous contrast. Sagittal and coronal reformatted images were obtained on the technologist's workstation. FINDINGS: The lung bases are clear. The liver, spleen, adrenal glands, gallbladder, and pancreas are normal. There is new moderate left-sided hydroureteronephrosis. There are a few hazy areas of increased density within the proximal to mid left ureter that may reflect fragmented calculi or blood products. There is periureteral stranding along the entire course of the left ureter which is dilated to the level of the ureterovesicular junction where no definite calculus is identified however there is asymmetric soft tissue at the left ureterovesicular junction which would be better assessed with direct visual inspection. There is no right-sided hydronephrosis. The right kidney is unremarkable. A 3 mm nonobstructing calculus within the posterior midpole of the left kidney is again noted. The large and small bowel are normal in caliber without evidence of mechanical obstruction. No focal inflammatory changes adjacent to the large or the small bowel. There is no free air and there is no intra-abdominal free fluid. No mesenteric or retroperitoneal adenopathy. The pelvic viscera are normal. No pelvic adenopathy. No free fluid within the pelvis. Punctate focus of nondependent gas within the bladder, likely from prior Booth catheter insertion. There are no acute osseous abnormalities. No significant soft tissue abnormality. IMPRESSION: - There is new moderate left-sided hydroureteronephrosis and there is a delayed left-sided nephrogram. There are a few hazy areas of increased density within the proximal to mid left ureter that may reflect obstructing fragmented calculi or blood products. There is periureteral stranding along the entire course of the left ureter which is dilated to the level of the ureterovesicular junction where no definite calculus is identified however there is asymmetric soft tissue at the left ureterovesicular junction which would be better assessed with direct visual inspection. - A 3 mm calculus within the posterior midpole of the left kidney is again noted.
[2016-10-31 10:24] VITALS: BP 136/72
--- NOTE | 2016-10-31 11:42 | Cons- Urology ---
General Information and HPI Consulting Request Date of Consult: 10/31/16 Requested By: MD ILA LORAINE-ER Reason for Consult: SEVERE LEFT RENAL COLIC Source of Information: patient Exam Limitations: no limitations History of Present Illness: 26 YEAR OLD WITH RECENT LEFT STENT REMOVAL DUE TO INTOLERANCE: RETURNS TO ER WITH SEVERE COLIC AND NEW HYDRO ON CT. PAIN NOW UNDER CONTROL WITH IV NARCOTICS Allergies/Medications Allergies: Coded Allergies: NO KNOWN ALLERGIES (06/16/16) Home Med List: Ciprofloxacin HCl (Cipro) 500 MG TABLET 1 TAB PO BID INFECTION Diazepam (Valium) 5 MG TABLET 1 TAB PO TID BACK PAIN Oxycodone HCl/Acetaminophen (Oxycodone-Acetaminophen 5-325) 5 MG-325 MG TABLET 1 TAB PO AD PAIN (Reported) Phenazopyridine HCl 100 MG TABLET 100 MG PO PC PRN ABDOMINAL PAIN FOR DYSURIA TID PRN Tamsulosin HCl 0.4 MG CAP.ER.24H 1 CAP PO DAILY (Reported) Current Medications: Current Medications Sig/Jen Start time Last Medication Dose Route Stop Time Status Admin Hydromorphone HCl 1 MG ONCE ONE 10/31 0500 DC 10/31 IV 10/31 0501 0500 Hydromorphone HCl 0 .STK-MED ONE 10/31 0458 DC .ROUTE Sodium Chloride 1,000 ML Q13H 10/31 0815 DCD IV Past History Medical History Neurological: NONE EENT: otitis media, sinusitis Cardiovascular: NONE Respiratory: NONE Gastrointestinal: NONE Hepatic: NONE Renal: nephrolithiasis Musculoskeletal: PINKY FINGER FX Psychiatric: NONE Endocrine: NONE Blood Disorders: NONE Cancer(s): NONE 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 parent Services at Home: None Primary Language: Tamazight Living Will? no Functional Ability ADLs Independent: dressing, eating, toileting, bathing. Ambulation: independent IADLs Independent: shopping, housework, finances, food prep, telephone, transportation , medication admin. Employment History Retired? no Review of Systems Review of Systems Constitutional: Denies: no symptoms. EENTM: Denies: no symptoms. Cardiovascular: Denies: no symptoms. Respiratory: Denies: no symptoms. GI: Reports: bloating. Genitourinary: Reports: dysuria, hematuria. Musculoskeletal: Denies: no symptoms. Skin: Denies: no symptoms. Exam & Diagnostic Data Vital Signs and I&O Vital Signs Date Time Temp Pulse Resp B/P B/P Pulse O2 O2 Flow FiO2 Mean Ox Delivery Rate 10/31 1024 97.4 62 18 136/72 99 Room Air 10/31 0921 97.2 68 17 130/68 97 Room Air 10/31 0654 97.8 61 16 141/66 97 Room Air 10/31 0503 Room Air Room Air 10/31 0427 99.1 60 22 143/78 Physical Exam General Appearance: well developed/nourished, no apparent distress Head: atraumatic Eyes: Bilateral: normal appearance. Ears, Nose, Throat: normal pharynx Respiratory: normal breath sounds Cardiovascular: regular rate/rhythm Gastrointestinal: normal bowel sounds Back: CVA tenderness (L) Extremities: normal inspection, normal capillary refill Skin: intact, normal color, warm/dry Reproductive: Normal male genitalia Last 24 Hours of Labs: Laboratory Tests 10/31 0455 Chemistry Sodium (137 - 145 mmol/L) 134 L Potassium (3.5 - 5.1 mmol/L) 3.6 Chloride (98 - 107 mmol/L) 104 Carbon Dioxide (22 - 30 mmol/L) 20 L Anion Gap (5 - 16) 10 BUN (9 - 20 mg/dL) 15 Creatinine (0.7 - 1.2 mg/dL) 1.2 Estimated GFR (>60 ml/min) > 60 BUN/Creatinine Ratio (7 - 25 %) 12.5 Glucose (65 - 99 mg/dL) 120 H Calcium (8.4 - 10.2 mg/dL) 8.8 Hematology CBC w Diff NO MAN DIFF REQ WBC (4.8 - 10.8 /CUMM) 12.4 H RBC (4.70 - 6.10 /CUMM) 4.84 Hgb (14.0 - 18.0 G/DL) 14.6 Hct (42 - 52 %) 42.8 MCV (80.0 - 94.0 FL) 88.6 MCH (27.0 - 31.0 PG) 30.1 RDW (11.5 - 14.5 %) 12.0 Plt Count (130 - 400 /CUMM) 223 MPV (7.4 - 10.4 FL) 7.9 Gran % (42.2 - 75.2 %) 69.1 Lymphocytes % (20.5 - 51.1 %) 22.4 Monocytes % (1.7 - 9.3 %) 7.2 Eosinophils % (0 - 5 %) 0.9 Basophils % (0.0 - 2.0 %) 0.4 Absolute Granulocytes (1.4 - 6.5 /CUMM) 8.6 H Absolute Lymphocytes (1.2 - 3.4 /CUMM) 2.8 Absolute Monocytes (0.10 - 0.60 /CUMM) 0.9 H Absolute Eosinophils (0.0 - 0.7 /CUMM) 0.1 Absolute Basophils (0.0 - 0.2 /CUMM) 0.1 PUBS MCHC (33.0 - 37.0 G/DL) 34.0 Imaging Results: PATIENT: KASSANDRA FLEMING PRESENT AGE: 26 PATIENT ACCOUNT NO: [id number] : 89 LOCATION: [facility] ORDERING PHYSICIAN: CHELLY BRITT MD SERVICE DATE: 10/31/16 EXAM TYPE: CAT - CT ABD & PELVIS W IV CONTRAST EXAMINATION: CT ABDOMEN AND PELVIS WITH CONTRAST CLINICAL INFORMATION: Left lower quadrant abdominal pain COMPARISON: Abdominal radiographs October 29, [address] October 14, 2016. TECHNIQUE: Multidetector volumetric imaging was performed of the abdomen and pelvis before and after the IV administration of 95 mL of Omnipaque 300 intravenous contrast. Sagittal and coronal reformatted images were obtained on the technologist's workstation. FINDINGS: The lung bases are clear. The liver, spleen, adrenal glands, gallbladder, and pancreas are normal. There is new moderate left-sided hydroureteronephrosis. There are a few hazy areas of increased density within the proximal to mid left ureter that may reflect fragmented calculi or blood products. There is periureteral stranding along the entire course of the left ureter which is dilated to the level of the ureterovesicular junction where no definite calculus is identified however there is asymmetric soft tissue at the left ureterovesicular junction which would be better assessed with direct visual inspection. There is no right-sided hydronephrosis. The right kidney is unremarkable. A 3 mm nonobstructing calculus within the posterior midpole of the left kidney is again noted. The large and small bowel are normal in caliber without evidence of mechanical obstruction. No focal inflammatory changes adjacent to the large or the small bowel. There is no free air and there is no intra-abdominal free fluid. No mesenteric or retroperitoneal adenopathy. The pelvic viscera are normal. No pelvic adenopathy. No free fluid within the pelvis. Punctate focus of nondependent gas within the bladder, likely from prior Booth catheter insertion. There are no acute osseous abnormalities. No significant soft tissue abnormality. IMPRESSION: - There is new moderate left-sided hydroureteronephrosis and there is a delayed left-sided nephrogram. There are a few hazy areas of increased density within the proximal to mid left ureter that may reflect obstructing fragmented calculi or blood products. There is periureteral stranding along the entire course of the left ureter which is dilated to the level of the ureterovesicular junction where no definite calculus is identified however there is asymmetric soft tissue at the left ureterovesicular junction which would be better assessed with direct visual inspection. - A 3 mm calculus within the posterior midpole of the left kidney is again noted. Assessment/Plan Assessment/Plan LEFT COLIC AND HYDRO EXPECTED FROM STENT REMOVAL: PT NOW UNDER CONTROL WITH MEDS.: DC WITH MSO4, TORADOL, COLACE, FLOMAX, PYRIDIUM; FOLLOW UP 1 WEEK TO REPEAT US. Copies To: AVRIL VELAZCO MD Consult Acknowledgment - Thank you for your consult request. Attending MD Review Statement Attending Statement Attending MD Statement: examined this patient, discuss w/resident/PA/FOOD ASSEMBLER Attending Assessment/Plan: EXPECTED LEFT HYDRO WITH COLIC POST STENT REMOVAL: DC HOME WITH RX NOTED ABOVE. F/U 1 WEEK FOR REPEAT RENAL US.
== END 2016-10-31 10:28 ==
LOC: ERH 04:08
PROVIDERS: Emergency Medicine
DX: N13.30 Unspecified hydronephrosis (principal)
CPT/HCPCS: 36415; 74177; 96374